=== PATIENT | female | born 1935 | race Caucasian/White ===

== ENCOUNTER 2017-04-14 15:44 | Emergency (ER) | payer MEDICARE ==
[~2017-04-14] VITALS: Ht 162.6 cm; Wt 89.5 kg
[2017-04-14] MEDS ORDERED: SODIUM CHLORIDE FLUSH 10ML SYR IVF ONE (16:00)
[2017-04-14] MEDS ORDERED: SODIUM CHLORIDE 0.9% 1,000ML IVBOLUS ONE (16:00)
[2017-04-14] MEDS ORDERED: FAMOTIDINE 20 MG/2 ML IVPush ONE (16:00)
[2017-04-14] MEDS ORDERED: FAMOTIDINE 20 MG/2 ML ONE (17:11)
[2017-04-14 18:42] LABS: ASPARTATE AMINO TRANSFERASE 16 U/L (15-37); BLOOD UREA NITROGEN 16 mg/dL (7-18)
[2017-04-14 19:46] LABS: PATH.CAST-FLAG NOT PRESENT; SPERM-FLAG NOT PRESENT; SRC-FLAG NOT PRESENT; XTAL-FLAG NOT PRESENT; YLC-FLAG NOT PRESENT
[2017-04-14 21:00] VITALS: BP 169/69
[2017-04-14] MEDS ORDERED: CEFTRIAXONE PMX 1GM/50ML 50 ML IV ONE (21:00)
[2017-04-14] MEDS ORDERED: CEFTRIAXONE 1,000 MG IVPB ONE (21:00)
[2017-04-14] MEDS ORDERED: CEFTRIAXONE PMX 1GM/50ML 50 ML ONE (21:08)
[2017-04-14] MEDS ORDERED: PROPOFOL 10 MG/ML, 20ML ONE (21:33)
[2017-04-14] MEDS ORDERED: PROPOFOL 10 MG/ML, 20ML IVPush ONE ×2 (22:00)
== END 2017-04-14 19:51 | disposition home or self-care (01) ==
LOC: ED 19:14
DX: T18.128A Food in esophagus causing other injury, initial encounter (principal); K21.0 Gastro-esophageal reflux disease with esophagitis; N30.00 Acute cystitis without hematuria; X58.XXXA Exposure to other specified factors, initial encounter; Y93.89 Activity, other specified; Y92.89 Other specified places as the place of occurrence of the external cause; Y99.9 Unspecified external cause status
CPT/HCPCS: 36415; 43247; 74220; 76700; 80053; 81001; 83690; 85025; 87077; 87086; 87186; 96361; 96365; 96366; 96375; 99152; 99153; 99285; J0696; J7030; S0028

== ENCOUNTER 2017-09-16 08:52 | Emergency (ER) | payer MEDICARE ==
[2017-09-16] MEDS ORDERED: SODIUM CHLORIDE 0.9% 1,000ML IVBOLUS ONE (09:30)
[2017-09-16] MEDS ORDERED: KETOROLAC 30 MG/1 ML IVPush ONE (09:30)
[2017-09-16] MEDS ORDERED: SODIUM CHLORIDE FLUSH 10ML SYR IVF ONE (09:30)
[2017-09-16] MEDS ORDERED: KETOROLAC 30 MG/1 ML ONE (09:34)
[2017-09-16] MEDS ORDERED: IBUPROFEN 200 MG TABLET ONE (09:44)
[2017-09-16] MEDS ORDERED: IBUPROFEN 200 MG TABLET PO ONE (10:00)
[2017-09-16] MEDS ORDERED: DULO20CA45 PO (10:09)
[2017-09-16] MEDS ORDERED: PROP10TA PO (10:09)
[2017-09-16] MEDS ORDERED: LEVO50TA5 PO (10:09)
[2017-09-16] MEDS ORDERED: PREG75CA PO (10:09)
[2017-09-16 11:09] LABS: HEMATOCRIT 37.3 % (34.6-47.8); HEMOGLOBIN 12.4 g/dL (11.7-16.4); WHITE BLOOD COUNT 11.4 x10^3/uL (3.4-10)
[2017-09-16 13:16] LABS: ASPARTATE AMINO TRANSFERASE 27 U/L (15-37); BLOOD UREA NITROGEN 13 mg/dL (7-18)
[2017-09-16 13:28] VITALS: BP 126/65
== END 2017-09-16 13:30 | disposition home or self-care (01) ==
LOC: ED 09:32
DX: J20.8 Acute bronchitis due to other specified organisms (principal); B96.89 Other specified bacterial agents as the cause of diseases classified elsewhere; R07.89 Other chest pain; K21.9 Gastro-esophageal reflux disease without esophagitis
CPT/HCPCS: 36415; 71010; 80053; 81001; 83605; 83880; 85025; 87077; 87086; 87186; 93005; 99285